=== PATIENT | female | born 1975 | race Caucasian/White ===

== ENCOUNTER 2018-01-29 10:45 | Emergency (ER) | payer OTHER ==
[2018-01-29 11:02] VITALS: BP 141/98
--- NOTE | 2018-01-29 11:08 | UC ---
Dizzy HPI HPI Summary: Patient is a 42-year-old female with a 3 day history of dizziness. Her symptoms worsen when she moves her head or changes position. She has a sensation of the room moving. Her sister symptoms started when she was saline. She has had nausea with her dizziness. But at once. She has had a few episodes of in her ear problems in the past. She has some mild left earache. She has some mild decreased hearing in the left ear. She denies any ringing or roaring in her ears. She denies any headache. She denies any recent URI symptoms. She desires to be treated with medicines that will not cause drowsiness. - History Of Current Complaint Chief Complaint: UCLowerExtremity Stated Complaint: LT LEG INJURT-SPORTS RELATED Time Seen by Provider: 01/29/18 11:02 Hx Obtained From: Patient Hx Last Menstrual Period: 01/19/18 Onset/Duration: Gradual Onset, Lasting Days Timing: Constant Severity Initially: Moderate Severity Currently: Moderate Pain Intensity: 8 - Allergies/Home Medications Allergies/Adverse Reactions: Allergies Allergy/AdvReac Type Severity Reaction Status Date / Time No Known Allergies Allergy Verified 01/04/16 12:03 Home Medications: Home Medications Ibuprofen 400 mg PO DAILY 01/29/18 [History Confirmed 01/29/18] PMH/Surg Hx/FS Hx/Imm Hx - Surgical History Surgical History: Yes Surgery Procedure, Year, and Place: IUD partially removed - Family History Known Family History: Positive: Other - mother with septic cholecystitis - Social History Alcohol Use: Daily Alcohol Amount: 1-2 A DAY Substance Use Type: None Smoking Status (MU): Former Smoker Physical Exam Vital Signs: Initial Vital Signs Temp 99.3 F 01/29/18 10:55 Pulse 99 01/29/18 10:55 Resp 18 01/29/18 10:55 BP 141/98 01/29/18 10:55 Pulse Ox 100 01/29/18 10:55 Discharge - Discharge Plan Referrals: Wendy Begum NP [Primary Care Provider] -
--- NOTE | 2018-01-29 11:44 | UC ---
Knee Pain HPI - HPI Summary HPI Summary: The patient is a 42-year-old female who injured her left leg while water skiing over the weekend. She states that she has severe pain radiating from the posterior left knee the medial left side of her leg to the buttocks. He is having a difficult time bearing weight. Her leg feels swollen. She thinks she has some faint bruising. She has taken 400 mg of ibuprofen with minimal relief. - History of Current Complaint Chief Complaint: UCLowerExtremity Stated Complaint: LT LEG INJURT-SPORTS RELATED Time Seen by Provider: 01/29/18 11:02 Hx Obtained From: Patient Hx Last Menstrual Period: 01/19/18 Onset/Duration: Sudden Onset, Lasting Days Severity Initially: Severe Severity Currently: Severe Pain Intensity: 8 Character: Sharp, Aching, Throbbing, Spasmodic Aggravating Factor(s): Movement, Weight Bearing Alleviating Factor(s): Rest Associated Signs And Symptoms: Positive: Swelling Able to Bear Weight: Yes Legs: 1 - pain 2 - maximin pain - Allergies/Home Medications Allergies/Adverse Reactions: Allergies Allergy/AdvReac Type Severity Reaction Status Date / Time No Known Allergies Allergy Verified 01/04/16 12:03 Home Medications: Home Medications Ibuprofen 400 mg PO DAILY 01/29/18 [History Confirmed 01/29/18] PMH/Surg Hx/FS Hx/Imm Hx - Surgical History Surgical History: Yes Surgery Procedure, Year, and Place: IUD partially removed - Family History Known Family History: Positive: Other - mother with septic cholecystitis - Social History Alcohol Use: Daily Alcohol Amount: 1-2 A DAY Substance Use Type: None Smoking Status (MU): Former Smoker Review of Systems Constitutional: Negative Skin: Negative Eyes: Negative ENT: Negative Respiratory: Negative Cardiovascular: Negative Gastrointestinal: Negative Genitourinary: Negative Motor: Negative Neurovascular: Negative Musculoskeletal: Myalgia Neurological: Negative Psychological: Negative All Other Systems Reviewed And Are Negative: Yes Physical Exam Triage Information Reviewed: Yes Appearance: Well-Appearing, No Pain Distress, Well-Nourished Vital Signs: Initial Vital Signs Temp 99.3 F 01/29/18 10:55 Pulse 99 01/29/18 10:55 Resp 18 01/29/18 10:55 BP 141/98 01/29/18 10:55 Pulse Ox 100 01/29/18 10:55 Vital Signs Reviewed: Yes Eyes: Positive: Conjunctiva Clear ENT: Positive: Hearing grossly normal. Negative: Nasal congestion, Nasal drainage, Trismus, Muffled voice, Hoarse voice Neck: Positive: Supple Respiratory: Positive: Lungs clear, Normal breath sounds, No respiratory distress, No accessory muscle use Cardiovascular: Positive: RRR, No Murmur Musculoskeletal: Positive: Other: - see image Neurological: Positive: Alert Psychological Exam: Normal Skin Exam: Normal Diagnostics - Radiology No standard instances Xray Interpretation: Positive (See Comments) - Bulbous enlargement of the medial thigh muscle may represent partial tear with small intramuscular hematoma. No gross hematoma is noted. Radiology Interpretation Completed By: Radiologist Knee Pain Course/Dx - Differential Dx/Diagnosis Provider Diagnoses: partial muscle tear medial left thigh Discharge - Sign-Out/Discharge Documenting (check all that apply): Patient Departure - Discharge Plan Condition: Stable Disposition: HOME Referrals: Wendy Begum NP [Primary Care Provider] - - Billing Disposition and Condition Condition: STABLE Disposition: Home
--- NOTE | 2018-01-29 12:07 | RAD ---
Indication: Left medial thigh injury. Real-time sonography of the left medial thigh was performed. There is bulbous enlargement of the medial muscle presumably gracilis sartorius muscle. There is a small amount of fluid near the medial attachment near the femur. This likely represents partial tear involving the medial hamstring muscle. Small intramuscular hematomas are not excluded. IMPRESSION: Bulbous enlargement of the medial thigh muscle may represent partial tear with small intramuscular hematoma. No gross hematoma is noted.
== END 2018-01-29 13:05 | disposition home or self-care (01) ==
LOC: UCCORT 10:45
DX: S76.912A Strain of unspecified muscles, fascia and tendons at thigh level, left thigh, initial encounter (principal); X58.XXXA Exposure to other specified factors, initial encounter; Y93.17 Activity, water skiing and wake boarding; Y92.89 Other specified places as the place of occurrence of the external cause
CPT/HCPCS: 99213; G0463

== ENCOUNTER 2019-08-03 09:42 | Emergency (ER) | payer OTHER ==
[2019-08-03 11:34] VITALS: BP 143/78
[2019-08-03] MEDS ORDERED: Ibuprofen TAB* 600 MG PO ONE (12:06)
--- NOTE | 2019-08-03 12:06 | UC ---
Headache HPI - HPI Summary HPI Summary: L sided sudden head pain with 'zaps' every few min. Feels a stabbing paul but denies worst headache of her life. Interrupts her sleep. Alternating cold and hot sensations. Patient has tried ibuprofen with temporary "maybe two hours" improvement. denies vision changes, facial dropping, confusion, n/v, sensitivity to light. Has 1 pet at home. denies hx of head injury or car accident. denies recent travel. has 1 pet at home. touch does NOT make it worse. she did have a recent tooth infxn and was given antibx, has yet to finish this. will be having root canal in a few days. - History Of Current Complaint Chief Complaint: UCHeadache Stated Complaint: L SIDE HEAD PAIN Time Seen by Provider: 08/03/19 11:59 Hx Obtained From: Patient Hx Last Menstrual Period: 07/22/19 Onset/Duration: Sudden Onset - 4 days ago Pain Intensity: 8 - Allergies/Home Medications Allergies/Adverse Reactions: Allergies Allergy/AdvReac Type Severity Reaction Status Date / Time No Known Allergies Allergy Verified 08/03/19 11:29 Home Medications: Home Medications Ibuprofen TAB* [Advil TAB*] 600 mg PO Q6H PRN 08/03/19 [History Confirmed ] Metoprolol/HCTZ 50/25 (NF) [Metoprolol/Hydrochlorothi] 1 tab PO DAILY 08/03/19 [ History Confirmed 08/03/19] PMH/Surg Hx/FS Hx/Imm Hx Previously Healthy: Yes Cardiovascular History: Hypertension - Surgical History Surgical History: Yes Surgery Procedure, Year, and Place: IUD partially removed - Family History Known Family History: Positive: Other - mother with septic cholecystitis - Social History Alcohol Use: Daily Alcohol Amount: 1-2 A DAY Substance Use Type: None Smoking Status (MU): Former Smoker Review of Systems All Other Systems Reviewed And Are Negative: Yes Constitutional: Positive: Fever, Chills. Negative: Fatigue Skin: Negative: Rash Eyes: Negative: Blurred Vision, Diplopia, Photophobia ENT: Negative: Sore Throat, Ear Ache, Sinus Congestion, Sinus Pain/Tenderness Respiratory: Negative: Shortness Of Breath Gastrointestinal: Negative: Vomiting, Nausea Neurovascular: Positive: Other - pulsating in L side of head Musculoskeletal: Negative: Arthralgia - denies neck pain Neurological: Positive: Headache, Paresthesia, Other - "zaps in head'. Physical Exam Triage Information Reviewed: Yes Appearance: Well-Appearing, Other: - visibly in pain and jumps when she gets ' zaps' in head. Vital Signs: Initial Vital Signs Temp 100.6 F 08/03/19 11:27 Pulse 120 08/03/19 11:27 Resp 18 08/03/19 11:27 BP 143/78 08/03/19 11:27 Pulse Ox 98 08/03/19 11:27 Vital Signs Reviewed: Yes Eyes: Positive: Conjunctiva Clear ENT: Positive: Pharynx normal, TMs normal - bilat, Uvula midline. Negative: Sinus tenderness Neck: Positive: Supple, Nontender Respiratory Exam: Normal Cardiovascular Exam: Normal Neurological: Positive: Alert, Muscle Tone Normal. Negative: Other: - scalp/ head is nontender, atraumatic, normocephalic. CN II-Xii unremarkable w/ normal shoulder shrugging, no facial drooping, and fine motor movements of fingers intact. Psychological: Positive: Other: - irritable Skin: Negative: Rashes Headache Course/Dx - Course Course Of Treatment: unclear etiology of L sided headache w/ unremarkable neuro exam. There is a slight temp and there is some thought this may be due to a tooth abscess she may have causing referred pain but cannot be certain. It is thought she best get head CT at ED which we cannot do here. Reassuring that there are no vision changes and the rest of her vitals are good but tachycardic and her HR has remained elevated. When disc w/ her she states she is currently having an anxiety attack and has her medication at home for this. with low grade fever and headache I strongly recommend ED after leaving her. she verbalized understanding. - Differential Dx/Diagnosis Differential Diagnosis/HQI/PQRI: Migraine, Temporal Arteritis, Tension Headache Provider Diagnosis: Head pain Discharge ED - Sign-Out/Discharge Documenting (check all that apply): Patient Departure All imaging exams completed and their final reports reviewed: No Studies - Discharge Plan Condition: Stable Disposition: HOME-RECOMMEND TO ED Patient Education Materials: Migraine Headache (ED) Referrals: Wendy Begum NP [Primary Care Provider] - Additional Instructions: I am concerned there is another issue happening but I would need a head CT which we do not have at this site. With your low grade fever and headache I am concerned enough to send you to the Emergency Room. It is my recommendation you go there now. - Billing Disposition and Condition Condition: STABLE Disposition: Home-Recommend to ED - Attestation Statements Provider Attestation: I was available for consult. This patient was seen by the DEEPALI. The patient was not presented to , seen by or examined by nd -Bucky Thomas MD
== END 2019-08-03 12:24 | disposition home health service (06) ==
LOC: UCCORT 09:42
DX: R51 Headache (principal); R50.9 Fever, unspecified; I10 Essential (primary) hypertension; F41.9 Anxiety disorder, unspecified; Z87.891 Personal history of nicotine dependence; Z79.899 Other long term (current) drug therapy
CPT/HCPCS: 99212; A9270-GY; G0463

== ENCOUNTER 2019-08-09 11:28 | Emergency (ER) | payer OTHER ==
--- OUTSIDE RECORDS SUMMARY | 2019-08-09 11:42 | XMS REPORT | Continuity of Care Document ---
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 Onset: 10/30/2015 Alcohol dependence Juan C Begum FNP Onset: 06/02/2016 Alcoholic fatty liver Juan C Begum FNP Onset: 09/08/2018 Liver function tests abnormal Jared Bowers MD Onset: 04/17/2018 Flatulence, eructation and gas pain James Clark MD Onset: 08/12/2016 Benign neoplasm of colon James Clark MD Onset: 08/12/2016 Social History Type Date Description Comments Sex Unknown ETOH Use 02/06/2019 Uses Alcohol Daily Document: 07/15/10 - .H&P Female 3-4 daily, wine and mixed drinks Recreational Drug Use Denies Drug Use Tobacco Use Start: Unknown End: Patient is a former socially only - Unknown smoker stopped 08/2018 Smoking Status Reviewed: 08/08/19 Patient is a former socially only - smoker stopped 08/2018 Allergies, Adverse Reactions, Alerts Description No Known Drug Allergies Medications Active Medications SIG Qnty Indications Ordering Date Provider Suprep Bowel Prep Kit as directed 354ml Z12.11 Pa Correa, 08/08/2019 17.5-3.13-1.6GM/177ML Solution Gas-X as directed pre 2units Z12.11 Pa Correa, 08/08/2019 80mg Chewtabs colonscopy Sumatriptan Succinate 1 tab by mouth 5tabs Clune, 08/06/2019 50mg as needed Jenniferleigh, Tablets headache may MUTUEL CASHIER repeat dose 2 hours later - MDD#2 Cefdinir one by mouth 20caps Clune, 08/05/2019 300mg Capsules twice a day x 10 Jenniferlei, days for acute MUTUEL CASHIER sinus infection Hydrochlorothiazide take one capsule 90caps Clune, 02/20/2013 12.5mg by mouth daily Jenniferleigh, Capsules MUTUEL CASHIER Metoprolol Tartrate take 1 tablet by 30tabs Clune, 08/05/2011 50mg Tablets mouth once daily Jenniferleimita, MUTUEL CASHIER Immunizations CPT Code Status Date Vaccine Lot # [id number] Given 04/02/2018 Influenza Virus Vaccine, Quadrivalent, 36 Mos+, [id number] .[id number] 06646 Given 06/15/2017 Influenza Virus Vaccine, Quadrivalent, Slit Virus, Im Use 66014 Given 06/02/2016 Influenza Virus Vaccine Split Virus Use For [id number] Individual 3Yr Older 67667 Given 04/26/2013 flu vaccination 26283 Given 06/11/2012 flu vaccination 17817 Given 07/21/2011 flu vaccination 43303 Given 05/22/2007 flu vaccination Vital Signs Date Vital Result Comment 08/08/2019 10:28am BP Systolic Sitting Left Arm 121 mmHg BP Diastolic Sitting Left Arm 82 mmHg Body Temperature 98.9 F Heart Rate 88 /min Respiratory Rate 16 /min Height 62 inches 5'2" Weight 143.00 lb Pain Level 0 BMI (Body Mass Index) 26.2 kg/m2 BSA (Body Surface Area) 1.66 m2 [place] body weight in kilograms 50 kg O2 % BldC Oximetry 95 % 02/06/2019 10:05am BP Systolic Sitting Right Arm 126 mmHg BP Diastolic Sitting Right Arm 81 mmHg Body Temperature 98.6 F Heart Rate 79 /min Respiratory Rate 18 /min Height 62 inches 5'2" Weight 156.00 lb BMI (Body Mass Index) 28.5 kg/m2 BSA (Body Surface Area) 1.72 m2 [place] body weight in kilograms 50 kg Results Test Acquired Date Facility Test Result H/L Range Note Aot Request 08/04/2019 [facility] Aot Request Already done 1, 2 [address] [place] [address] [phone] Tests to be added: crp Comprehensive Metabolic 08/04/2019 [facility] Glucose 175 mg/dL High 74-106 Panel [address] [place] [address] [phone] BUN 5 mg/dL Critical low 7-18 Creatinine 0.5 mg/dL Low 0.6-1.3 Glom Filtration Rate, Estimate >60 mL/min >60 If >60 mL/min >60 3 BUN/Creat 10.0 ratio Sodium 137 mmol/L Normal 136-145 Potassium 3.4 mmol/L Low 3.5-5.1 Chloride 109 mmol/L High 98-107 Carbon Dioxide 21 mmol/L Normal 21-32 Anion Gap 7 mEq/L Low 8-16 Calcium 7.9 mg/dL Low 8.5-10.1 Total Protein 6.6 g/dL Normal 6.4-8.2 Albumin 2.5 g/dL Low 3.4-5.0 Globulin 4.1 g/dL Normal 1.9-4.3 Alb/Glob 0.6 ratio Bilirubin,Total 0.3 mg/dL Normal 0.2-1.0 Sgot/Ast 54 U/L High 15-37 SGPT/Alt 33 U/L Normal 12-78 Alkaline Phosphatase 64 U/L Normal 45-117 Laboratory test 08/04/2019 [facility] Phosphorous 2.4 mg/dL Low 2.5-4.0 finding [address] [place] [address] [phone] C-Reactive Protein,Quant 155.0 mg/L High <3.0 CBC W/Automated 08/04/2019 [facility] White Blood 4.6 K/uL Normal 3.1-10.7 Diff [address] [place] [address] [phone] Red Blood Count 3.64 M/uL Low 3.90-5.40 Hemoglobin 11.8 gm/dL Normal 11.6-15.8 Hematocrit 35.3 % Low 36.0-46.1 Mean Cell Volume 97.0 fl Normal 80.9-99.0 Mean Corpuscular HGB 32.4 pg Normal 25.9-32.7 Mean Corpuscular HGB Conc 33.4 g/dL Normal 30.8-34.3 Platelet Count 115 K/uL Low 155-360 Red Cell Distri Width SD 45.1 fl Normal 36-47 Red Cell Distri Width %CV 12.5 % Normal 11.7-14.4 Mean Platelet Volume 10.1 fl Normal 8.9-12.4 Neut% 90.6 % High 40.4-72.8 Lymph % 3.9 % Low 20.0-42.0 [place] % 4.6 % Normal 4.3-13.2 Eo% 0.0 % Normal 0.0-6.6 Bas% 0.2 % Normal 0.0-1.1 Immature Grans 0.7 % Normal 0.0-5.0 NRBC % 0.0 /100WBC < 10/ 100 WBC Neut# 4.13 K/uL Normal 1.8-7.0 Lymph # 0.18 K/uL Low 1.0-4.0 Montgomery # 0.21 K/uL Low 0.3-0.9 Eos # 0.00 K/uL Normal 0.0-0.5 Baso # 0.01 K/uL Normal 0.0-0.1 Immature Grans Absolute 0.03 K/uL NRBC # 0.00 K/uL Laboratory test 08/04/2019 [facility] Slide Review DIFF ORDERED finding [address] [place], [place] [id number] [phone] Differential-WBC 08/04/2019 [facility] Total Cells 100 #CELLS Confirm [address] [place] [address] [phone] Band% 29 % Critical high 0-8 Neutrophils% 63 % Normal 33-73 Lymph% 6 % Low 20-42 Monocyte% 2 % Normal 0-10 Platelet Estimate SLIGHT DECREASE RBC Morphology NORMAL Toxic Granulation 0-1+ Influenza A/B 08/03/2019 [facility] Influenza A Negative (Negative) [address] Antigen [place], [place] [id number] [phone] Influenza B Antigen Negative (Negative) 5 Drugs Of 08/03/2019 [facility] Amphetamines (Urine) Negative 6 Abuse-Urine Screen [address] [place], [place] [address] [phone] Barbiturates (Urine) Negative Benzodiazepines (Urine) Negative Cannabinoids (Urine) Negative Cocaine Metabolite (Urine) Negative Methadone (Urine) Negative Opiates (Urine) Negative Urine Cutoffs * 7 Laboratory test 08/03/2019 [facility] Magnesium 1.7 mg/dL Normal 1.6-2.6 8, 9 finding [address] [place], [place] [id number] [phone] Phosphorous 2.4 mg/dL Low 2.5-4.0 10 CK 79 U/L Normal 26-192 11 C-Reactive Protein,Quant 171.0 mg/L High <3.0 12 Comprehensive Metabolic 08/03/2019 [facility] Glucose 112 mg/dL High 74-106 Panel [address] [place], [place] [address] [phone] BUN 7 mg/dL Normal 7-18 Creatinine 0.7 mg/dL Normal 0.6-1.3 Glom Filtration Rate, Estimate >60 mL/min >60 If >60 mL/min >60 13 BUN/Creat 10.0 ratio Sodium 132 mmol/L Low 136-145 Potassium 2.6 mmol/L Critical low 3.5-5.1 Chloride 98 mmol/L Normal 98-107 Carbon Dioxide 25 mmol/L Normal 21-32 Anion Gap 9 mEq/L Normal 8-16 Calcium 8.6 mg/dL Normal 8.5-10.1 Total Protein 7.6 g/dL Normal 6.4-8.2 Albumin 3.1 g/dL Low 3.4-5.0 Globulin 4.5 g/dL High 1.9-4.3 Alb/Glob 0.7 ratio Bilirubin,Total 0.5 mg/dL Normal 0.2-1.0 Sgot/Ast 85 U/L High 15-37 SGPT/Alt 46 U/L Normal 12-78 Alkaline Phosphatase 76 U/L Normal 45-117 Laboratory test 08/03/2019 [facility] Ethyl Alcohol 42.0 mg/dL finding [address] [place], [place] [id number] [phone] Urinalysis With 08/03/2019 [facility] Urine Color YELLOW Yellow Microscopic [address] [place] [address] [phone] Urine Clarity CLEAR Clear Urine Glucose - Dipstick NEGATIVE mg/dL Negative Urine Bilirubin - Dipstick NEGATIVE Negative Urine Ketone TRACE mg/dL Negative Urine Specific [place] <= 1.005 Low 1.010-1.030 Urine Blood TRACE Negative Urine PH 6.5 Normal 6.5-7.5 Urine Protein - Dipstick NEGATIVE mg/dL Negative Urine Urobilinogen - Dipstick 0.2 E.U./dL Normal 0.2-1.0 Urine Nitrite - Dipstick NEGATIVE Negative Urine Leuk Esterase NEGATIVE Negative Source: URINE, CLEAN CAT <SEE NOTE> 14 Urine RBC NONE SEEN rbc/hpf 0-2 Urine WBC 2-5 wbc/hpf 0-7 Urine Epithelial Cells MANY /lpf None Seen Urine Bacteria VERY FEW None Seen CBC W/Automated 08/03/2019 [facility] White Blood 5.6 K/uL Normal 3.1-10.[address] [place] [address] [phone] Red Blood Count 4.03 M/uL Normal 3.90-5.40 Hemoglobin 12.9 gm/dL Normal 11.6-15.8 Hematocrit 38.3 % Normal 36.0-46.1 Mean Cell Volume 95.0 fl Normal 80.9-99.0 Mean Corpuscular HGB 32.0 pg Normal 25.9-32.7 Mean Corpuscular HGB Conc 33.7 g/dL Normal 30.8-34.3 Platelet Count 107 K/uL Low 155-360 Red Cell Distri Width SD 43.6 fl Normal 36-47 Red Cell Distri Width %CV 12.4 % Normal 11.7-14.4 Mean Platelet Volume 9.5 fl Normal 8.9-12.4 Neut% 83.8 % High 40.4-72.8 Lymph % 5.3 % Low 20.0-42.0 Montgomery % 9.6 % Normal 4.3-13.2 Eo% 0.0 % Normal 0.0-6.6 Bas% 0.2 % Normal 0.0-1.1 Immature Grans 1.1 % Normal 0.0-5.0 NRBC % 0.0 /100WBC < 10/ 100 WBC Neut# 4.71 K/uL Normal 1.8-7.0 Lymph # 0.30 K/uL Low 1.0-4.0 Montgomery # 0.54 K/uL Normal 0.3-0.9 Eos # 0.00 K/uL Normal 0.0-0.5 Baso # 0.01 K/uL Normal 0.0-0.1 Immature Grans Absolute 0.06 K/uL NRBC # 0.00 K/uL Lactic Acid 08/03/2019 [facility] Lactic Acid 1.4 mmol/L Normal 0.4-1.9 [address] [place] [address] [phone] Lab Reflex >2.0 for Sepsis? Y Aot Request 08/03/2019 [facility] Aot Request Test(s) added 15 [address] [place] [address] [phone] Tests to be added: magnesium Aot Request 08/03/2019 [facility] Aot Request Test(s) added 16, 17 [address] [place] [address] [phone] Tests to be added: CRP CPK PHOSPHOR <SEE NOTE> 18 Influenza A/B 08/03/2019 [facility] Influenza A Negative (Negative) Antigen [address] [facility] Antigen [place], [place] [id number] [phone] Influenza B Antigen Negative (Negative) 19 Laboratory 08/03/2019 [facility] Potassium 3.4 mmol/L Low 3.5-5.1 test finding [address] [place] [address] [phone] CBC 02/06/2019 [facility] [address] White Blood 3.2 K/uL Normal 3.1-10.7 20 W/Automated [address] Count Diff [place], [place] [address] [phone] Red Blood Count 3.81 M/uL Low 3.90-5.40 Hemoglobin 12.8 gm/dL Normal 11.6-15.8 Hematocrit 38.3 % Normal 36.0-46.1 Mean Cell Volume 100.5 fl High 80.9-99.0 Mean Corpuscular HGB 33.6 pg High 25.9-32.7 Mean Corpuscular HGB Conc 33.4 g/dL Normal 30.8-34.3 Platelet Count 154 K/uL Low 155-360 Red Cell Distri Width SD 49.1 fl High 36-47 Red Cell Distri Width %CV 13.2 % Normal 11.7-14.4 Mean Platelet Volume 10.2 fl Normal 8.9-12.4 Neut% 61.1 % Normal 40.4-72.8 Lymph % 24.7 % Normal 20.0-42.0 Montgomery % 13.0 % Normal 4.3-13.2 Eo% 0.3 % Normal 0.0-6.6 Bas% 0.6 % Normal 0.0-1.1 Immature Grans 0.3 % Normal 0.0-5.0 NRBC % 0.0 /100WBC < 10/ 100 WBC Neut# 1.93 K/uL Normal 1.8-7.0 Lymph # 0.78 K/uL Low 1.0-4.0 Montgomery # 0.41 K/uL Normal 0.3-0.9 Eos # 0.01 K/uL Normal 0.0-0.5 Baso # 0.02 K/uL Normal 0.0-0.1 Immature Grans Absolute 0.01 K/uL NRBC # 0.00 K/uL Laboratory test 02/06/[address] Ferritin 93 ng/mL Normal 8- 252 finding [address] [place] [address] [phone] Iron-Tibc-%Sat 02/06/[address] Serum Iron 95 g/dL Normal 50 -170 [address] [place], [place] [address] [phone] Total Iron Binding Capacity 400 g/dL Normal 250-450 Transferrin %Saturation 24 % Normal 12-57 LDL Cholesterol 02/06/[address] Cholesterol 253 mg/dL High < 200 21 Profile [address] [place] [address] [phone] Triglycerides 70 mg/dL <150 22 HDL Cholesterol 108 mg/dL >40 23 LDL-Cholesterol 131 mg/dL < 100 24 Comprehensive 02/06/[address] Glucose 89 mg/dL Normal 74-106 Metabolic Panel [address] [place] [address] [phone] BUN 8 mg/dL Normal 7-18 Creatinine 0.7 mg/dL Normal 0.6-1.3 Glom Filtration Rate, Estimate >60 mL/min >60 If >60 mL/min >60 25 BUN/Creat 11.4 ratio Sodium 141 mmol/L Normal 136-145 Potassium 3.6 mmol/L Normal 3.5-5.1 Chloride 104 mmol/L Normal 98-107 Carbon Dioxide 25 mmol/L Normal 21-32 Anion Gap 12 mEq/L Normal 8-16 Calcium 8.3 mg/dL Low 8.5-10.1 Total Protein 7.9 g/dL Normal 6.4-8.2 Albumin 3.7 g/dL Normal 3.4-5.0 Globulin 4.2 g/dL Normal 1.9-4.3 Alb/Glob 0.9 ratio Bilirubin,Total 0.5 mg/dL Normal 0.2-1.0 Sgot/Ast 127 U/L High 15-37 SGPT/Alt 59 U/L Normal 12-78 Alkaline Phosphatase 71 U/L Normal 45-117 Vitamin B12 And 02/06/[address] [facility] [address] Vitamin B12 273 pg/mL Normal 193-986 Folate [address] [place] [id number] [phone] Folic Acid 19.1 ng/mL High 3.1-17.5 1 FLU LIKE SYMPTOMS, DEHYDRATION 2 Tests: crp Instructions: 3 Note: Persistent reduction for 3 months or more in an eGFR <60 mL/min/1.73 m2 defines CKD. Patients with eGFR values >/=60 mL/min/1.73 m2 may also have CKD if evidence of persistent proteinuria is present. The original MDRD equation for estimated GFR is not valid for patients less than 18 years of age. Additional information may be found at www.kdoqi.org. 4 SENT [address] [facility] FOR CT SCAN A LOT OF PAIN IN HEAD 5 Please Note: A POSITIVE result for influenza A and/or B antigen does not rule out a co-infection with other pathogens or identify any specific influenza A virus subtype. A NEGATIVE result for influenza A and/or B antigen does not preclude influenza virus infection and should not be the sole basis for treatment or other management decisions, since the antigen present in the specimen may be below the detection limit of the test. A NEGATIVE result is PRESUMPTIVE and it is recommended these results be confirmed by virus culture or an FDA-cleared influenza A and B molecular assay. Method: BD Veritor Chromatographic immunoassay 6 FLU LIKE SYMPTOMS, DEHYDRATION 7 URINE SPECIMENS ARE SCREENED AT THE LISTED CUTOFFS DRUG CLASS INITIAL TEST LEVEL Amphetamines 1000 ng/mL Barbiturates 200 ng/mL Benzodiazepines 200 ng/mL Cannabinoids 50 ng/mL Cocaine Metabolite 300 ng/mL Methadone 300 ng/mL Opiates 300 ng/mL Any PRESUMPTIVE POSITIVE findings are UNCONFIRMED. Confirmatory testing is suggested if findings are unexpected. Please contact laboratory if confirmatory testing is desired. SPECIMENS ARE HELD FOR 72 HOURS. 8 SENT BY [facility] FOR CT SCAN A LOT OF PAIN IN HEAD 9 CALLED K TO ALIESHA S AT 1528 08/03/19 by LAB.GT 10 CALLED K TO ALIESHA S AT 1528 08/03/19 by LAB.GT 11 CALLED K TO ALIESHA S AT 1528 08/03/19 by LAB.GT 12 CALLED K TO ALIESHA S AT 1528 08/03/19 by LAB.GT 13 Note: Persistent reduction for 3 months or more in an eGFR <60 mL/min/1.73 m2 defines CKD. Patients with eGFR values >/=60 mL/min/1.73 m2 may also have CKD if evidence of persistent proteinuria is present. The original MDRD equation for estimated GFR is not valid for patients less than 18 years of age. Additional information may be found at www.kdoqi.org. 14 URINE, CLEAN CATCH 15 Tests: magnesium Instructions: 16 FLU LIKE SYMPTOMS, DEHYDRATION 17 Tests: CRP CPK PHOSPHOROUS Instructions: 18 CRP CPK PHOSPHOROUS 19 Please Note: A POSITIVE result for influenza A and/or B antigen does not rule out a co-infection with other pathogens or identify any specific influenza A virus subtype. A NEGATIVE result for influenza A and/or B antigen does not preclude influenza virus infection and should not be the sole basis for treatment or other management decisions, since the antigen present in the specimen may be below the detection limit of the test. A NEGATIVE result is PRESUMPTIVE and it is recommended these results be confirmed by virus culture or an FDA-cleared influenza A and B molecular assay. Method: BD Veritor Chromatographic immunoassay 20 G25.81 I10 21 Reference Guidelines*: Desirable: ........... < 200 mg/dL Borderline High: ..... 200-239 mg/dL High: ................ >= 240 mg/dL * The National Cholesterol Education Program (NCEP) 22 Reference Guidelines*: Normal: ............. < 150 mg/dL Borderline High: .... 150-199 mg/dL High: ............... 200-499 mg/dL Very High: .......... > 500 mg/dL * Source: National Cholesterol Education Program (NCEP) 23 Reference Guidelines*: Low HDL: ..... < 40 mg/dL Normal: ..... 40-60 mg/dL Desirable: ... > 60 mg/dL *The National Cholesterol Education Program(NCEP) 24 Reference Guidelines*: Optimal:........... <100 mg/dL Near Optimal....... 100-129 mg/dL Borderline High.... 130-159 mg/dL High............... 160-189 mg/dL Very High.......... >=190 mg/dL * Source: National Cholesterol Education Program (NCEP) 25 Note: Persistent reduction for 3 months or more in an eGFR <60 mL/min/1.73 m2 defines CKD. Patients with eGFR values >/=60 mL/min/1.73 m2 may also have CKD if evidence of persistent proteinuria is present. The original MDRD equation for estimated GFR is not valid for patients less than 18 years of age. Additional information may be found at www.kdoqi.org. Procedures Date Code Description Status 06/10/2019 15202547 Mammogram Completed 02/10/2016 84664523 Colonoscopy Completed Medical Devices Description No Information Available Encounters Type Date Location Provider Dx Diagnosis Office Visit 02/06/2019 Family [facility] [place], Z00.01 Encounter for 10:[place], general adult MUTUEL CASHIER medical exam w abnormal findings R42 Dizziness and giddiness G25.81 Restless legs syndrome F41.1 Generalized anxiety disorder I10 Essential (primary) hypertension Assessments Date Code Description Provider 08/08/2019 K63.5 Polyp of colon Ko Yoder, PA 08/08/2019 Z12.11 Encounter for screening for malignant Ko Yoder PA neoplasm of colon 08/04/2019 J01.90 Acute sinusitis, unspecified Marlene Jimenez M.D. 08/04/2019 E87.8 Other disorders of electrolyte and fluid Marlene Jimenez M.D. balance, not elsewhere classified 08/04/2019 R50.9 Fever, unspecified Marlene Jimenez M.D. 08/04/2019 G50.1 Atypical facial pain Marlene Jimenez M.D. 08/03/2019 J01.90 Acute sinusitis, unspecified Marlene Jimenez M.D. 08/03/2019 E87.8 Other disorders of electrolyte and fluid Marlene Jimenez M.D. balance, not elsewhere classified 08/03/2019 R50.9 Fever, unspecified Marlene Jimenez M.D. 08/03/2019 G50.1 Atypical facial pain Marlene Jimenez M.D. 02/06/2019 Z00.01 Encounter for general adult medical Juan C Begum FNP examination with abnormal findings 02/06/2019 R42 Dizziness and giddiness Juan C Begum FNP 02/06/2019 G25.81 Restless legs syndrome Juan C Begum FNP 02/06/2019 F41.1 Generalized anxiety disorder Juan C Begum FNP 02/06/2019 I10 Essential (primary) hypertension Juan C Begum FNP Plan of Treatment 08/08/2019 - Ko Yoder, PAK63.5 Polyp of lqyarF36.11 Encounter for screening for malignant neoplasm of colonNew Medication:Suprep Bowel Prep Kit 17.5-3.13-1.6 GM/177ML - as directedGas-X 80 mg - as directed pre colonscopyNew Orders:Colonoscopy, Ordered: 08/08/19 Functional Status Functional Condition Comment Date Status Independent with all ADL's Active Bifocal glasses Active Mental Status Description No Information Available Referrals Description No Information Available
[2019-08-09 11:55] VITALS: BP 122/85
--- NOTE | 2019-08-09 12:42 | UC ---
Respiratory Complaint HPI - HPI Summary HPI Summary: 44 yo with a 6 day history of headache, diagnosed sinusitis after she had a CT of the brain for atypical headache. She began cefdinir, headaches have resolved , but she is continuing to find that she has a productive cough. She has used her son's albuterol with relief, and did sleep last night. Her has pneumonia. - History of Current Complaint Chief Complaint: UCRespiratory Stated Complaint: SOB,CHEST TIGHTNESS Time Seen by Provider: 08/09/19 12:30 Hx Obtained From: Patient Hx Last Menstrual Period: 07/22/19 Onset/Duration: Gradual Onset, Lasting Days Timing: Intermittent Episodes Severity Initially: Moderate Severity Currently: Mild Pain Intensity: 0 Character: Cough: Productive Aggravating Factors: Deep Breaths, Recumbent Position Alleviating Factors: Bronchodilator Associated Signs And Symptoms: Positive: Dyspnea, Nasal Congestion, Sinus Discomfort - Risk Factors Pulmonary Embolism Risk Factors: Negative Cardiac Risk Factors: Negative Pseudomonas Risk Factors: Negative Tuberculosis Risk Factors: Negative - Allergies/Home Medications Allergies/Adverse Reactions: Allergies Allergy/AdvReac Type Severity Reaction Status Date / Time No Known Allergies Allergy Verified 08/09/19 11:45 Home Medications: Home Medications Cefdinir cap* [Cefdinir 300 MG cap (NF)] 300 mg PO BID 08/09/19 [History Confirmed 08/09/19] Metoprolol Tartrate TAB* [Lopressor TAB*] 1 tab DAILY 08/09/19 [History Confirmed 08/09/19] PMH/Surg Hx/FS Hx/Imm Hx Previously Healthy: Yes Cardiovascular History: Hypertension - Surgical History Surgical History: Yes Surgery Procedure, Year, and Place: IUD partially removed - Family History Known Family History: Positive: Other - mother with septic cholecystitis - Social History Occupation: Employed Full-time Lives: With Family Alcohol Use: Daily Alcohol Amount: 1-2 A DAY Substance Use Type: None Smoking Status (MU): Former Smoker Review of Systems All Other Systems Reviewed And Are Negative: Yes Constitutional: Positive: Fatigue Skin: Positive: Negative Eyes: Positive: Negative ENT: Positive: Sinus Congestion Respiratory: Positive: Shortness Of Breath, Cough Cardiovascular: Positive: Negative Gastrointestinal: Positive: Negative Genitourinary: Positive: Negative Motor: Positive: Negative Neurovascular: Positive: Negative Musculoskeletal: Positive: Negative Neurological: Positive: Headache - now resolved. Psychological: Positive: Negative Is Patient Immunocompromised?: No Physical Exam Triage Information Reviewed: Yes Appearance: Ill-Appearing - congested cough, looks fatigued Vital Signs: Initial Vital Signs Temp 97.7 F 08/09/19 11:46 Pulse 93 08/09/19 11:46 Resp 16 08/09/19 11:46 BP 122/85 08/09/19 11:46 Pulse Ox 95 08/09/19 11:46 ENT: Positive: Pharynx normal, TMs normal Neck: Positive: Supple, Nontender, No Lymphadenopathy Respiratory: Positive: Normal breath sounds, No respiratory distress, Wheezing - upper lung bonilla with mild late expiratory wheeze.. Negative: Crackles, Rhonchi Cardiovascular: Positive: RRR, No Murmur Musculoskeletal Exam: Normal Neurological: Positive: Alert, Muscle Tone Normal Psychological Exam: Normal Skin Exam: Normal Respiratory Course/Dx - Course Course Of Treatment: Discussed CXR for evaluation, but declined by patient due to concern about cost. Add azithromycin for possible mycoplasma. Continue albuterol. Add prednisone. - Differential Dx/Diagnosis Differential Diagnosis/HQI/PQRI: Bronchitis, Lower Resp Infection Provider Diagnosis: Bronchitis Discharge ED - Sign-Out/Discharge Documenting (check all that apply): Patient Departure All imaging exams completed and their final reports reviewed: No Studies - Discharge Plan Condition: Stable Disposition: HOME Prescriptions: Azithromycin TAB* [Zithromax TAB (Z-TREY) 250 mg #6 tabs] 2 tab PO .TODAY, THEN 1 DAILY #1 trey predniSONE 20 mg TAB [Deltasone 20 MG TAB*] 40 mg PO DAILY #10 tab Patient Education Materials: Acute Bronchitis (ED) Referrals: Wendy Begum NP [Primary Care Provider] - Additional Instructions: As discussed, you have some wheeze on exam. Please continue albuterol for relief of wheezing. Azithromycin has been added for coverage for Mycoplasma, which can cause the type of symptoms which you are experiencing. Complete the course of cefininr. Prednisone has also been prescribed, and this will help to decrease mucous secretions. Take it with food. You can add mucinex, guiafensin 600mg twice daily, to help you to expectorate the mucous - Billing Disposition and Condition Condition: STABLE Disposition: Home
== END 2019-08-09 13:04 | disposition home or self-care (01) ==
LOC: UCCORT 11:28
DX: J40 Bronchitis, not specified as acute or chronic (principal); I10 Essential (primary) hypertension; R51 Headache; R09.81 Nasal congestion; Z79.899 Other long term (current) drug therapy; Z87.891 Personal history of nicotine dependence
CPT/HCPCS: 99212; G0463